=== PATIENT | male | born 1960 | race Caucasian/White ===

== ENCOUNTER 2022-05-07 08:45 | Outpatient (RCR) | payer OTHER, SELFPAY | END 2022-05-07 10:00 | disposition home or self-care (01) | PROVIDERS: PCP Surgery; Visit Provider Surgery | DX: G89.29 Other chronic pain (principal); M54.50 Low back pain, unspecified; Z51.89 Encounter for other specified aftercare | CPT/HCPCS: 97110; 97140; 97161 ==

== ENCOUNTER 2023-08-09 09:21 | Outpatient (CLI) | payer OTHER, SELFPAY ==
--- OUTSIDE RECORDS SUMMARY | 2023-08-09 09:24 | XMS_ITS | Continuity of Care Document ---
Author Organization [facility] Address [address] [place] [address] Phone Care Team Providers Care Customer Experience Specialist Name Role Phone Gretchen TERRELL, PhD, Luis Unavailable Unavai lable Allergies, Adverse Reactions, Alerts Substance Reaction Status Criticality mold Active No Information Medications Medication Instructions Dosage Effective Dates (start - stop) Status Comments GABAPENTIN (unknown strength) Not Available - Active TAMSULOSIN HCL (unknown strength) Not Available - Active FINASTERIDE (unknown strength) Not Available - Active HYDROCHLOROTHIAZIDE (unknown strength) Not Available - Active ATORVASTATIN CALCIUM (unknown strength) Not Available - Active LISINOPRIL (unknown strength) Not Available - Active ALLOPURINOL (unknown strength) Not Available - Active Procedures Procedure Date Office/Outpatient Visit,Est, Low 2021 Office/Outpatient Visit,New, [facility] 2021 Advance Directives Directive Yes / No Effective Date File Name No Information Encounters Encounter Description Practice Location Reason(s) For Visit Diagnoses Date Provider Providers Copied on Encounter [facility], [address], [place], [place], [id number], [place] tel:[phone] [facility] No Information Gretchen Smith. [facility], [address], [place], [address], [place]. [phone] Office/Outpat ient Visit,Est, Low [facility], [address], [place], [place], [id number], [place] tel:[phone] [facility] No Information Gretchen Smith. [facility], [address], [place], [address], [place]. tel:[phone] Referring Provider: Sarabjit Abernathy, [place] [address], [place], [address] . tel:[phone] Office/Outpat ient Visit,New, [facility], [address], [place], [place], [id number], [place] tel:[phone] [facility] Other spondylosis with radiculopathy, cervical regionSpinal stenosis, cervical region Braedennickolas Garcia. [facility], [address], [place], [address], [place]. tel:[phone] Referring Provider: Sarabjit Aberntahy, [email or web address] [address], [place], [address] . tel:[phone] Family History Family Member Type Diagnosis Age At Onset No Information Payers Payer name Insurance type Covered republican ID Authoriza tion(s) Medica CI [id number] Social History Type Description Quantity Date Captured Comments Sex Male Smoking Status No Information Chief Complaint And Reason For Visit No Information Reason For Referral Reason For Referral No Information History Of Present Illness Encounter Date Complaint History Of Prese nt Illness No Information Functional Status Date Functional Assessmen t No Information Instructions Date Instruction Additional Infor mation No Information Assessments Type Assessment Date No Information Patient Care Teams Name Effective Dates (start - stop) Status Members No Information
--- OUTSIDE RECORDS SUMMARY | 2023-08-09 09:24 | XMS_ITS | Clinical Summary ---
Author Organization [employer] [facility] Address [place], [place] [address] Care Team Providers Care Anesthesiology Technologist Name Role Phone Sarabjit Anne MD Primary Care Provider [phone] Allergies Active Allergy Reactions Criticality Noted Date Comments Mold Extracts Runny Nose 08/16/2006 Medications Medication Sig Dispensed Refills Start Date End Date Status hydroCHLOROthiazi de 12.5 mg tabletIndications :Essential hypertension Take 1 Tablet (12.5 mg) by mouth once daily. 90 Tablet 3 05/03/2023 Active atorvastatin (LIPITOR) 20 mg tabletIndications :Hyperlipidemia with target LDL less than 160 Take 1 Tablet (20 mg) by mouth once daily. 90 Tablet 05/03/2023 Active finasteride (PROSCAR) 5 mg tabletIndications :Benign prostatic hyperplasia, unspecified whether lower urinary tract symptoms present Take 1 Tablet (5 mg) by mouth once daily. 90 Tablet 05/03/2023 Active tamsulosin (FLOMAX) 0.4 mg capsuleIndication s:Benign prostatic hyperplasia, unspecified whether lower urinary tract symptoms present Take 1 Capsule (0.4 mg) by mouth once daily after a meal. 90 Capsule 05/03/2023 Active lisinopriL (PRINIVIL; ZESTRIL) 40 mg tabletIndications :Essential hypertension Take 1 Tablet (40 mg) by mouth once daily. 90 Tablet 05/03/2023 Active sildenafiL, pulm.hypertension , (REVATIO) 20 mg tabletIndications :Erectile dysfunction, unspecified erectile dysfunction type Take 1-5 pills (start at lower dose and increase next time if needed) 30 mins prior to sexual intercourse 90 Tablet 05/03/2023 Active indomethacin (INDOCIN) 50 mg capsuleIndication s:Gout, unspecified cause, unspecified chronicity, unspecified site Take 1 Capsule (50 mg) by mouth every 8 hours if needed for Gout Pain. 30 capsule. 12/08/2020 Discontinue d(*Med complete/Re gimen complete/Le lars of care change) Active Problems Problem Noted Date Diagnosed Date Stage 3a chronic kidney disease 03/08/2022 Overview: Stable since at least 2008 Elevated PSA 01/27/2017 Hyperlipidemia LDL goal < 160 Hypertension Resolved Problems Problem Noted Date Diagnosed Date Resolved Date Unspecified essential hypertension 12/06/2008 03/30/2011 Elevated blood pressure read ing without diagnosis of hypertension 05/10/2008 12/06/2008 Encounters Date Type Department Care Team Description 08/09/2023 Travel 08/08/2023 Telephone [facility] [address] [place] [address] Demarcus Michele MD Questions (Injection for 08/09/23) 07/27/2023 10:40 AM CDT Office Visit [facility] [address] [place] [address] Demarcus Michele MD Musculoskeletal Problem (Consult back pain) 07/27/2023 Telephone [facility] [address] [place] [address] Demarcus Michele MD Appointment 07/27/2023 Travel 05/19/2023 8:00 AM CDT Ancillary Procedure [facility] [address] [place] [address] 05/19/2023 Travel from Last 3 Months Immunizations Name Administration Dates Next Due COVID-19 vaccine ([employer] NTVideoflow 30mcg/0.3mL) PFSTEVE 02/23/2021,06/04/2020,05/14/2020 Influenza, IIV4 12/08/2020,10/23/2019 Tdap 11/21/2015,03/30/2005 Family History Medical History Relation Name Comments Heart Disease Brother Stents @ 42 Cancer-prostate Father Hypertension Father Hypertension Mother Cancer-colon No Family History Relation Name Status Comments Brother Father Mother Social History Tobacco Use Types Packs/Day Years Used Date Smoking Tobacco: Never Smokeless Tobacco: Never Tobacco Cessation:Counseling Given: No Alcohol Use Standard Drinks/Week Comments Yes 20 (1 standard drink = 0.6 oz pu re alcohol) Couple times per week PHQ-2 Answer Date Recorded PHQ-2 TOTAL SCORE 0 05/03/2023 Social Connections Answer Date Recorded Frequency of Communication with Friends and Fami ly 0 03/07/2023 Alcohol Use Answer Date Recorded How often do you have a drink containing alcohol ? 2 03/11/2021 How many drinks containing a lcohol do you have on a typical day when you are drinking? 0 03/11/2021 How often do you have five or more drinks on one occasion? 0 03/11/2021 Financial Resource Strain Answer Date R ecorded Difficulty of Paying Living Expenses 3 03/07/2023 Difficulty of Paying Living Expenses Not on file 03/07/2023 Food Insecurity Answer Date Recorded Worried About Running Out of Food in the Last Ye ar 1 03/07/2023 Transportation Needs Answer Date Record ed Lack of Transportation (Medical) 1 03/07/2023 Housing Stability Answer Date Recorded Unable to Pay for Housing in the Last Year 1 03/07/2023 Sex and Gender Information Value Date Recorded Sex Assigned at Not on file Gender Identity Not on file Sexual Orientation Not on file Obstetrics History Last Filed Vital Signs Vital Sign Reading Time Taken Comments Blood Pressure 115/75 07/27/2023 10:44 AM CDT Pulse 58 07/27/2023 10:44 AM CDT Temperature 36.4 ??C (97.6 ??F) 07/27/2023 1 0:44 AM CDT Respiratory Rate 14 02/25/2022 12:1 0 PM CLAIM INVESTIGATOR Oxygen Saturation 98% 07/27/2023 10: 44 AM CDT Inhaled Oxygen Concentration - - Weight 98.8 kg (217 lb 12.8 oz) 024 10:44 AM CDT Height 178.5 cm (5' 10.28) 05/03/2023 3:07 PM C DT Body Mass Index 31.01 05/03/2023 3:07 PM CDT Plan of Treatment Upcoming Encounters Date Type Department Care Team (Late st Contact Info) Description 08/09/2023 10:00 AM CDT Office Visit [facility] [address] [place] [address] Demarcus Michele MD [address] [facility] [address] Arrived 09/22/2023 8:00 AM CDT Office Visit [facility] [address] [facility] [address] Demarcus Michele MD [address] [place] [address] Health Maintenance Due Date Last Done Comments Zoster (shingles) series for age 50+ (1 of 2) 05/07/2011 COVID-19 vaccine series (2022- season) 2022 02/23/2021, 06/04/2020, 05/14/2020 Influenza for age 50-64 10/16/2023 12/08/2020, 10/22 BMI (ht and wt on same day) for age 18+ 05/02/2024 05/03/2023, 03/07/2023, 03/08/2022, Additional history exists Depression screening for age 12+ 05/02/2024 05/03/2023, 03/11/2022, 03/08/2022, Additional history exists HIV for age 15-65 04/02/2025 Postponed from 1976 (Patient discretion) Fecal testing sDNA-FIT (Cologuard) for age 45-75 11/17/2025 11/17/2022, 11/10/2019, 11/05/2019 Tetanus booster 11/20/2025 11/21/2015, 03/30/2005 Lipids for age 45-75 03/07/2028 03/07/2023, 02/25/2022, 12/08/2020, Additional history exists Tdap Completed 11/21/2015, 03/30/2005 Hepatitis C screening for age 18-79 Completed 10/23/2019 Pneumococcal series for age 6-64 Aged Out No longer eligible based on patient's age to complete this topic Procedures Procedure Name Priority Date/Time Associated Diagnosis Comments AMB EPIDURAL STEROID INJECTION Routine 08/09/2023 8:21 AM CDT Lumbar radicular pain Degenerative disc disease, lumbar Lumbar spondylolysis Lumbar foraminal stenosis MR SPINE LUMBAR WO Routine 05/19/2023 8: 23 AM CDT Chronic bilateral low back pain without sciatica Degenerative disc disease, lumbar LIPID PANEL W REFLEX MEASURED LDL Routine 03/07/2023 8:23 AM CLAIM INVESTIGATOR Hyperlipidemia with target LDL less than 160 SDNA-FIT EXTERNAL (COLOGUARD) Routine 11/17/2022 7:45 AM CDT Screen for colon cancer ANTI HCV Routine 10/23/2019 8:10 AM CDT Need for hepatitis C screening test from Last 3 Months or Most Recently Relevant to Health Maintenance Results * MR SPINE LUMBAR WO (05/19/2023 8:23 AM CDT) Anatomical Region Laterality Modality Spine, LUMBAR SPINE Magnetic Res onance 05/19/2023 7:58 PM CDT Impressions 05/19/2023 7:58 PM CDT 1. Multilevel lumbar spondylosis without spinal canal stenosis. 2. At L5-S1, moderate right and yxyr-mi-frggfiyw left neural foraminal narrowing. Dictated by Kojo Andrews MD @ 05/19/2023 7:58:21 PM (Electronically Signed) Narrative 05/19/2023 7:58 PM CDT For Patients: ??As a result of the Century Cures Act, medical imaging exams and procedure reports are released immediately into your electronic medical record. ??You may view this report before your referring provider. ??If you have questions, please contact your health care provider. INDICATION: Chronic bilateral low back pain. TECHNIQUE: Multiplanar multisequence noncontrast MR images of the lumbar spine. COMPARISON: Spine radiographs 03/08/2022. FINDINGS: The lumbar lordosis is preserved. Mild rightward lumbar curvature. Vertebral heights maintained. No acute fracture. No T1 hypointense lesions. Small nonreactive Schmorl`s node L5 superior endplate. Normal conus terminates at L2-3. T12-L1 through L2-3: No spinal canal or neural foraminal narrowing. L3-4: Trace retrolisthesis. Mild disc degeneration and disc height loss. Shallow circumferential disc bulge. Mild facet arthropathy. No spinal canal narrowing. Mild narrowing of the lateral recesses. Minimal bilateral neural foraminal narrowing. L4-5: Trace retrolisthesis. Moderate disc degeneration and disc height loss. Mild vertebral body edema. Posterior disc bulging and endplate spondylitic ridging. Mild facet arthropathy. Mild spinal canal and lateral recess narrowing. Mild right and minimal left neural foraminal narrowing. L5-S1: Mild retrolisthesis. Moderately advanced disc degeneration. Disc height loss. Type 2 degenerative signal changes. Posterior disc bulging and endplate spondylitic ridging eccentric to the right. Pdxc-pn-yqbznzke facet arthropathy. Minimal spinal canal narrowing. Mild right lateral recess narrowing. Moderate right and imbu-io-edlxtlss left neural foraminal narrowing. Small T2 hyperintense lesion in the left kidney, typical for a renal cyst. Procedure Note Kojo Andrews MD - 05/19/2023 For Patients: As a result of the Cures Act, medical imagingexams and procedure reports are released immediately into your electronicmedical record. You may view this report before your referring provider.If you have questions, please contact your health care provider. INDICATION: Chronic bilateral low back pain. TECHNIQUE: Multiplanar multisequence noncontrast MR images of the lumbar spine. COMPARISON: Spine radiographs 03/08/2022. FINDINGS: The lumbar lordosis is preserved. Mild rightward lumbar curvature.Vertebral heights maintained. No acute fracture. No T1 hypointenselesions. Small nonreactive Schmorl`s node L5 superior endplate. Normalconus terminates at L2-3. T12-L1 through L2-3: No spinal canal or neural foraminal narrowing. L3-4: Trace retrolisthesis. Mild disc degeneration and disc height loss.Shallow circumferential disc bulge. Mild facet arthropathy. No spinalcanal narrowing. Mild narrowing of the lateral recesses. Minimal bilateralneural foraminal narrowing. L4-5: Trace retrolisthesis. Moderate disc degeneration and disc heightloss. Mild vertebral body edema. Posterior disc bulging and endplatespondylitic ridging. Mild facet arthropathy. Mild spinal canal and lateralrecess narrowing. Mild right and minimal left neural foraminalnarrowing. L5-S1: Mild retrolisthesis. Moderately advanced disc degeneration. Discheight loss. Type 2 degenerative signal changes. Posterior disc bulgingand endplate spondylitic ridging eccentric to the right. Vvfz-nm-cwobyaanwcjco arthropathy. Minimal spinal canal narrowing. Mild right lateralrecess narrowing. Moderate right and eelm-rq-kqvriyft left neuralforaminal narrowing. Small T2 hyperintense lesion in the left kidney, typical for a renal cyst. IMPRESSION: 1. Multilevel lumbar spondylosis without spinal canal stenosis. 2. At L5-S1, moderate right and uken-go-mqubabfm left neural foraminalnarrowing. Dictated by Kojo Andrews MD @ 05/19/2023 7:58:21 PM (Electronically Signed) Sarabjit Anne MD MR * (ABNORMAL) LIPID PANEL W REFLEX MEASURED LDL (03/07/2023 8:23 AM CLAIM INVESTIGATOR) CHOLESTEROL,TOTAL 157 100 - 199 mg/dL 03/07/2023 2:27 PM [facility] Comment: Cholesterol, Total Reference Ranges Desirable <200 mg/dL Borderline 200-239 mg/dL High >=240 mg/dL TRIGLYCERIDES 192(H) <150 mg/dL 03/07/2023 2:27 PM CLAIM INVESTIGATOR [facility] HDL CHOLESTEROL 38(L) >40 mg/dL 2:27 PM CLAIM INVESTIGATOR [facility] NON-HDL CHOLESTEROL 119 <145 mg/dl 03/07/2023 2:27 PM CLAIM INVESTIGATOR [facility] CHOL/HDL RATIO 4.13 <4.50 03/07/2023 2:27 PM CLAIM INVESTIGATOR [facility] LDL CHOLESTEROL 81 <=130 mg/dL 03/07/2023 2:27 PM CLAIM INVESTIGATOR [facility] VLDL CHOLESTEROL 38(H) <=30 mg/dL 03/07/2023 2:27 PM [facility] PROVIDER ORDERED STATUS FASTING 03/07/2023 2:27 PM [facility] Blood BLOOD SPECIMEN / Unknown Venipuncture / Unknown 03/07/2023 8:23 AM CLAIM INVESTIGATOR 03/07/2023 8:24 AM CLAIM INVESTIGATOR Delbert Boles MD CHEMISTRY [facility] [address] [place] [address], [place] * SDNA-FIT EXTERNAL (COLOGUARD) (11/17/2022 7:45 AM CDT) NONINV COLON CA DNA+OCC BLD SCRN STL-IMP Negative Negative 11/25/2022 1:29 AM CDT Scaled Inference (CLIA #:[id number]) Comment: NEGATIVE TEST RESULT. A negative Cologuard result indicates a low likelihood that a colorectal cancer (CRC) or advanced adenoma (adenomatous polyps with more advanced pre-malignant features) ??is present. The chance that a person with a negative Cologuard test has a colorectal cancer is less than 1 in 1500 (negative predictive value >99.9%) or has an ??advanced adenoma is less than ??5.3% (negative predictive value 94.7%). These data are based on a prospective cross-sectional study of 10,000 individuals at average risk for colorectal cancer who were screened with both Cologuard and colonoscopy. (Luis Portillo et al, N Engl J Med 2014;370(14):1286- 1297) The normal value (reference range) for this assay is negative. COLOGUARD RE-SCREENING RECOMMENDATION: Periodic colorectal cancer screening is an important part of preventive healthcare for asymptomatic individuals at average risk for colorectal cancer. ??Following a negative Cologuard result, the [place] [employer] and U.S. Multi-Society Task Force screening guidelines recommend a Cologuard re-screening interval of 3 years. References: [place] [employer] Guideline for Colorectal Cancer Screening: https://www.cancer.org/cancer/ygqgf-zfdkut-hedijo/krvdkdsjr-mtlunudgu-caubjmv/ac s-rec ommendations.html.; Claude MCGILL, Adam CR, Erasmo OrozcoK, Colorectal Cancer Screening: Recommendations for Physicians and Patients from the U.S. Multi-Society Task Force on Colorectal Cancer Screening , Am J Gastroenterology 2017; 112:0206-4226. TEST DESCRIPTION: Composite algorithmic analysis of stool DNA-biomarkers with hemoglobin immunoassay. ?? Quantitative values of individual biomarkers are not reportable and are not associated with individual biomarker result reference ranges. Cologuard is intended for colorectal cancer screening of adults of either sex, 45 years or older, who are at average-risk for colorectal cancer (CRC). Cologuard has been approved for use by the U.S. FDA. The performance of Cologuard was established in a cross sectional study of average-risk adults aged 50-84. Cologuard performance in patients ages 45 to 49 years was estimated by sub-group analysis of near-age groups. Colonoscopies performed for a positive result may find as the most clinically significant lesion: colorectal cancer [4.0%], advanced adenoma (including sessile serrated polyps greater than or equal to 1cm diameter) [20%] or non- advanced adenoma [31%]; or no colorectal neoplasia [45%]. These estimates are derived from a prospective cross-sectional screening study of 10,000 individuals at average risk for colorectal cancer who were screened with both Cologuard and colonoscopy. (Luis Selby al, N Engl J Med 2014;370(14):4714-1701.) Cologuard may produce a false negative or false positive result (no colorectal cancer or precancerous polyp present at colonoscopy follow up). A negative Cologuard test result does not guarantee the absence of CRC or advanced adenoma (pre-cancer). The current Cologuard screening interval is every 3 years. ([place] [employer] and U.S. Multi-Society Task Force). Cologuard performance data in a 10,000 patient pivotal study using colonoscopy as the reference method can be accessed at the following location: www.[employer]/results. Additional description of the Cologuard test process, warnings and precautions can be found at www.[employer]BL Enterprisesrd.com. Stool specimen (specimen) (Rectum) 11/17/2022 7:45 AM CDT 11/18/2022 9:43 PM CDT Sarabjit Anne MD URINE Scaled Inference (CLIA #:[id number]) [address] [place] [address], * ANTI HCV (10/23/2019 8:10 AM CDT) HEPATITIS C ANTIBODY Non-React blair Non-React blair 10/23/2019 4:12 PM CDT [facility] Comment:Antibodies to HCV no t detected; does not exclude the possibility of exposure to HCV. Blood BLOOD SPECIMEN / Unknown Venipuncture / Unknown 10/23/2019 8:10 AM CDT 10/23/2019 8:14 AM CDT Sarabjit Anne MD [facility] [address] [place] [address], [place] from Last 3 Months or Most Recently Relevant to Health Maintenance Care Teams Anesthesiology Technologist Relationship Specialty Start Date End Date Sarabjit Anne MD [address] [place] [address] PCP - General Family Practice 01/16/18
== END 2023-08-09 09:22 | disposition home or self-care (01) ==
LOC: INJ CL 09:22
PROVIDERS: PCP Surgery; Visit Provider Family Medicine
DX: M54.16 Radiculopathy, lumbar region (principal); M51.36 Other intervertebral disc degeneration, lumbar region
CPT/HCPCS: 62323; J0702; Q9966